=== PATIENT | female | born 1980 | race Caucasian/White ===

== ENCOUNTER 2016-04-26 07:39 | Outpatient (CLI) | payer BC ==
[~2016-04-26] VITALS: Ht 162.6 cm; Wt 119.1 kg
[2016-04-26 08:57] VITALS: Ht 162.6 cm; Wt 119.1 kg
[2016-04-26] MEDS ORDERED: PRENTAB26 PO (08:59)
[2016-04-26] MEDS ORDERED: FERR1TAB23 PO (08:59)
== END 2016-04-26 09:15 | disposition home or self-care (01) ==
LOC: C.LD 07:39 → C.OPB 07:39
PROVIDERS: ATTEND Obstetrics & Gynecology
DX: O26.893 Other specified pregnancy related conditions, third trimester (principal); R10.9 Unspecified abdominal pain; Z3A.36 36 weeks gestation of pregnancy

== ENCOUNTER 2016-05-16 20:54 | Outpatient (CLI) | payer BC, OTHER ==
[~2016-05-16] VITALS: Ht 162.6 cm; Wt 118.5 kg
[~2016-05-16 20:54] MED LIST: FERR1TAB23 PO; PRENTAB26 PO
[2016-05-16 22:08] VITALS: Ht 162.6 cm; Wt 118.5 kg
== END 2016-05-16 23:25 ==
LOC: C.LD 20:54 → C.OPB 20:54
PROVIDERS: ATTEND Obstetrics & Gynecology
DX: O99.89 Other specified diseases and conditions complicating pregnancy, childbirth and the puerperium (principal); R10.9 Unspecified abdominal pain; Z3A.39 39 weeks gestation of pregnancy

== ENCOUNTER 2016-05-17 23:29 | Inpatient (IN) | payer BC, OTHER ==
[~2016-05-17] VITALS: Ht 162.6 cm; Wt 118.0 kg
[2016-05-18 00:31] LABS: HEMATOCRIT 32.5 % (37-47); MEAN CELL VOLUME 80.2 fL (80-100); MEAN CORPUSCULAR HEMOGLOBIN 26.9 pg (25-34); MEAN CORPUSCULAR HGB CONC 33.5 g/dl (32-36); PLATELET COUNT 256 K/uL (130-400); RED BLOOD COUNT 4.05 M/uL (4.2-5.4); WHITE BLOOD COUNT 13.43 K/uL (4.8-10.8)
[2016-05-18] MEDS ORDERED: LANOLIN OINT EXT PRN ×2 (00:45)
[2016-05-18] MEDS ORDERED: BENZOCAINE 20% AER SPR 82.5 GM CAN EXT PRN (00:45)
[2016-05-18] MEDS ORDERED: SUPERCREAM 0.870 % 15GM JAR EXT PRN (00:45)
[2016-05-18] MEDS ORDERED: HYDROCORTISONE ACETATE 25 MG SUPP PR PRN (00:45)
[2016-05-18] MEDS ORDERED: ACETAMINOPHEN/CODEINE 300/30MG TAB PO PRN ×2 (00:45)
[2016-05-18] MEDS ORDERED: IBUPROFEN 600 MG TAB PO PRN (00:45)
[2016-05-18 00:47] VITALS: Ht 162.6 cm; Wt 118.0 kg
[2016-05-18] MEDS ORDERED: OXYTOCIN INJ 10 UNITS/ML VIAL IM STA (00:49)
[2016-05-18] MEDS: IBUPROFEN 200 MG/10 ML UDC PO PRN ×4 (02:38→21:51)
[2016-05-18 04:15] VITALS: BP 132/68; PULSE 79; TEMP 36.7
--- NOTE | 2016-05-18 04:36 | DELIVERY SUMMARY ---
DATE OF OPERATION: 05/18/2016 HISTORY OF PRESENT ILLNESS: The patient is a 36-year-old -0-0-1 at 40 weeks 0 days who presented with spontaneous labor and subsequently delivered vaginally. complicated by advanced maternal age and tachycardia. She was to get a cardiology consult but did not show for that visit. PAST MEDICAL HISTORY: Heart murmur and asthma. PAST SURGICAL HISTORY: Denies. OBSTETRICAL HISTORY: History of vaginal delivery x1 at 38 weeks, uncomplicated. SOCIAL HISTORY: Denies tobacco, alcohol and drug use. Lives with spouse, son and dogs. FAMILY HISTORY: Noncontributory. REVIEW OF SYSTEMS: Negative except as above. MEDICATIONS: Albuterol and vitamins. ALLERGIES: No known drug allergies. PHYSICAL EXAMINATION: VITAL SIGNS: Blood pressure 129/70, pulse 95. GENERAL: Awake, alert, oriented x3, very uncomfortable due to contractions. CARDIOVASCULAR: Regular rate and rhythm, S1, S2. LUNGS: Clear to auscultation bilaterally. ABDOMEN: Gravid, soft, nontender to palpation. EXTREMITIES: Trace edema. Not able to obtain heart tracing due to spontaneous nature of delivery. heart rate in the 150s. LABORATORY DATA: Rh positive, rubella immune, GBS negative. ASSESSMENT AND PLAN: 1. A 36-year-old -0-0-1 at 40 weeks 0 days. 2. Spontaneous labor. DESCRIPTION OF DELIVERY: The patient progressed to complete without anesthesia and spontaneously vaginally delivered a viable male with Apgars 8 and 9. Weight is pending. The baby delivered head first followed by anterior and posterior shoulder followed by the body. The baby was placed in mothers abdomen where spontaneous cry was heard. The cord was doubly clamped and cut. A segment was retained for gases. Cord blood was obtained. The placenta delivered spontaneously intact with a 3-vessel cord. Pitocin was given 10 units IM due to inability to start IV prior to precipitous delivery. The uterus and vagina were sucked for all clots and debris. The uterus became firm. The cervix, vagina and perineum were inspected and a first degree perineal laceration as well as a superficial periurethral laceration were noted. The periurethral laceration was hemostatic. Prior to repair of the laceration 1% lidocaine without Epi was used as a local anesthetic. The first degree perineal laceration was repaired in standard fashion with 3-0 Vicryl. Mother and baby tolerated the delivery well. Excellent hemostasis was observed. Sponge, instrument and needle counts were correct at the conclusion of the case. I attest to the content of the Intraoperative Record and any orders documented therein. Any exceptions are noted below. MTDD
[2016-05-18] MEDS: FERROUS SULFATE 325 MG TAB PO SCH (07:51)
[2016-05-18] MEDS: DOCUSATE SODIUM 100 MG CAP PO SCH ×2 (07:52→20:00)
[2016-05-18 08:00] VITALS: BP 109/58; PULSE 90; TEMP 36.6
[2016-05-18 12:30] VITALS: BP 118/75; PULSE 93; TEMP 36.6; O2SAT 96
[2016-05-18 15:45] VITALS: BP 129/78; PULSE 92; TEMP 36.7; O2SAT 95
[2016-05-18 20:15] VITALS: BP 124/81; PULSE 96; TEMP 36.6; O2SAT 96
[2016-05-18 23:30] VITALS: BP 115/66; PULSE 87; TEMP 36.5; O2SAT 97
[2016-05-19 07:00] LABS: HEMATOCRIT 29.1 % (37-47)
--- NOTE | 2016-05-19 07:02 | Progress Note ---
Subjective May 19, 2016. Subjective conversation w/ patient, physical exam Ambulation: ambulating normally Voiding: no voiding problems Passing Gas: Yes Diet Tolerance: Regular Diet Lochia: Small Feeding Type: Breast Feeding Pain: No pain reported this morning Review of Systems Constitutional: No chills, No fever Respiratory: No cough, No shortness of breath Cardiac: No chest pain Breast: No breast pain Abdomen: No nausea, No pain, No vomiting Female : No dysuria Objective Vital Signs Date Time Temp Pulse Resp B/P Pulse Ox O2 Delivery O2 Flow Rate FiO2 05/18/16 23:30 97 Room Air 05/18/16 23:30 36.5 87 18 115/66 97 Room Air 05/18/16 20:15 36.6 96 18 124/81 96 Room Air 05/18/16 15:45 95 Room Air 05/18/16 15:45 36.7 92 16 129/78 95 Room Air 05/18/16 12:30 36.6 93 20 118/75 96 Room Air 05/18/16 08:00 36.6 90 18 109/58 Room Air 05/18/16 07:45 Room Air Physical Exam General Appearance: WELL-APPEARING, WD/WN, NO APPARENT DISTRESS Respiratory/Chest: lungs clear, normal breath sounds Cardiovascular: regular rate, rhythm, no gallop, no murmur Abdomen: non tender, soft Fundus: Firm, Relation to Umbilicus (At level of umbilicus) Extremities: no calf tenderness Laboratory Results Last 24 Hours Test 05/19/16 06:30 Hemoglobin 9.4 g/dL Hematocrit 29.1 % Medications Current Inpatient Medications Medications (Trade) Dose Ordered Sig/Bj Route Start Time Stop Time Status Last Admin Dose Admin Benzocaine (Dermoplast Aero Spr) 1 appln PRN PRN EXT 05/18/16 00:45 06/17/16 00:44 Cocaine HCl (Supercream 0.870% Cr) BID PRN EXT 05/18/16 00:45 06/01/16 00:44 Hydrocortisone Acetate (Anusol Hc Supp) 25 mg BID PRN MS 05/18/16 00:45 06/17/16 00:44 Lanolin (Lanolin Oint) PRN PRN EXT 05/18/16 00:45 06/17/16 00:44 Acetaminophen/ Codeine Phosphate (Tylenol w/ Codeine #3 Tab) 1 tab Q4H PRN PO 05/18/16 00:45 06/17/16 00:44 Acetaminophen/ Codeine Phosphate (Tylenol w/ Codeine #3 Tab) 2 tab Q4H PRN PO 05/18/16 00:45 06/17/16 00:44 Bisacodyl (Dulcolax Tab) 5 mg 20 PO 05/19/16 20:00 05/19/16 20:01 Bisacodyl (Dulcolax Supp) 10 mg DAILY PRN MS 05/20/16 07:00 Docusate Sodium (coLACE CAP) 100 mg BID PO 05/18/16 08:00 06/17/16 07:59 Ferrous Sulfate (Feosol Tab) 325 mg DAILY PO 05/18/16 08:00 06/17/16 07:59 05/18/16 07:51 325 MG Ibuprofen (Motrin Susp) 600 mg Q4H PRN PO 05/18/16 02:30 06/17/16 02:29 05/18/16 21:51 600 MG Assessment and Plan Post- Day#: 1 Continue Routine Care: - Vital Signs reviewed and WNL (temp max 36.5) - Blood Type: AB+, GBS Negative, Rubella Immune - Patient doing well clinically - Encourage Ambulation today - Tolerating PO Diet - Pain well controlled Resident Physician Supervision Note: I interviewed and examined the patient. Discussed with Dr. Rangel and agree with findings and plan as documented in the note. Any exceptions or clarifications are listed here: [None] Documented By: Ti Oh
--- NOTE | 2016-05-19 07:03 | Discharge Instructions ---
Discharge Instructions Admission Reason for Admission: Active Labor Discharge Discharge Diagnosis / Problem: Vaginal Delivery Discharge Goals Goal(s): Routine recovery after delivery Medications Continue Dispensed Medications: supercream, dermaplast, tucks, lansinoh Activity Recommendations Activity Limitations: per Instructions/Follow-up section . Instructions / Follow-Up Instructions / Follow-Up ACTIVITY RECOMMENDATIONS: * Gradual return to full activity over the next 2-3 weeks. * No lifting - nothing heavier than baby over the next 2-3 weeks. * Do not engage in vigorous exercise, sexual activity or sports until cleared by your physician. * Do not drive or operate any motorized equipment until cleared by your physician. * You may shower/bathe daily. MEDICATIONS: For discomfort or pain, you may use Acetaminophen (Tylenol), Ibuprofen (Advil), or Naproxen (Aleve) following the package directions. For constipation you may use Colace following the package directions. BREAST CARE: If you are not breast feeding: * Wear a supportive bra 24 hours a day for one to two weeks. * Avoid stimulating your breasts and nipples as much as possible during the first few weeks after delivery. * When taking a shower, have the warm water hit your back, not breasts. * When your breasts feel full, apply ice packs. Usually three to four times a day helps ease the discomfort. * Take a mild pain medication (Tylenol / Motrin) when you are uncomfortable. If breast feeding: * Use breast milk to lubricate nipples. Lansinoh cream may be used for sore nipples. You do not need to remove cream prior to breast feeding. If using a different brand of cream, check the label for directions regarding removal of cream prior to nursing. * Wear a supportive bra. * If having problems with breasts or breast feeding, call a industrial rehabilitation consultant or your health care provider. EPISIOTOMY CARE: After delivery, if you have an episiotomy (stitches), the following steps will ease discomfort and aid healing. * For the first 24 hours after delivery, place ice packs next to your episiotomy to help reduce swelling. * After the first 24 hour-period, sitz baths, either portable or in the tub, are suggested. A shower with a shower arm sprayed over the episiotomy may be comforting. * Carol care should be done after each voiding and bowel movement. Squirt warm water from a plastic bottle over the perineum (region of the body between the anus and urinary opening) and pat dry. * Use Dermoplast to ease discomfort. Shake container. [place] directly over the episiotomy. Place a Tucks on a clean sanitary pad next to your episiotomy. SPECIAL CARE INSTRUCTIONS: When you are discharged from the hospital, it is important for you to follow the instructions listed below: * During the first week at home, you should be able to care for yourself and your baby. In addition, the usual light household activities are encouraged. * Limit your activities to the way you feel. Do not try to clean the house or move furniture. Be sensible. * If you actively engage in sports and have done so up until the time of your delivery, you may resume these activities as soon as you feel able. This may take up to one month or even longer. Use good judgment. * Continue to take your vitamins for at least six weeks after the of your baby. * Your diet need not be limited unless you were on a special diet before your delivery. Breast-feeding mothers need around 2500 calories per day and at least 64-80 ounces of fluid per day (8 to 10 glasses). * You should eat foods from the four major food groups. Crash diets or fad diets are to be avoided. Eating lean meats, fresh fruits and vegetables, low-fat dairy products, high fiber foods and a regular exercise program, will help you get back to your pre- weight without putting your health at risk. * Constipation is sometimes a problem after delivery. Take a mild laxative as needed. If breast feeding, Milk of Magnesia is acceptable to use. You may use a suppository or Fleets enema if no episiotomy. * A daily shower or tub bath is suggested. Be sure to thoroughly and gently dry the perineum. * A bloody vaginal discharge will usually continue until around four weeks post . A small amount of bleeding may continue for as long as six weeks. Vaginal discharge changes from the bright red bleeding after delivery to pink then brownish and finally yellowish-pink before becoming white and disappearing. * Bleeding may increase with activity. Your first period may come in 4-8 weeks. If you are breast feeding, your period may be delayed even longer. * [place] (sex) can begin whenever both you and your partner feel comfortable and do not have any form of genital infection. It is recommended that you wait at least six weeks for internal and external healing to occur. If you have questions, please talk to your health care practitioner. A condom should be used to prevent infection and . * Foreplay, gentle intercourse and lubrication is very important the first several times to prevent pain. A water-based lubricant such as K-Y jelly or Astroglide may be used. * If you have RH negative blood and your baby is RH positive, you will receive RHOGAM by injection prior to discharge. The nurse will give you a card to keep with you that has the date and place that you received RHOGAM after delivery. * During your care, you had a Rubella screen done to check for the presence of rubella antibodies in your blood. If your test was negative, you will receive a Rubella vaccine prior to discharge. This vaccine may cause a fever, soreness at the injection site and flu-like symptoms. If these symptoms persist, notify your health care practitioner. is not advised for one month after a Rubella vaccine. * Verbalizes understanding of car seat law as reviewed with patient nursing. * Car Seat hand-out given and reviewed with patient by nursing. * Shaken baby information reviewed with patient by nursing. Call you doctor if: * Heavy bleeding (saturating several pads an hour) or passing clots the size of your fist. * A fever >101 degrees F (38.3 degrees C) on two occasions four hours apart and /or chills. * Unusual pain in the pelvic or vaginal areas. * "Baby Blues" lasting longer than two weeks. If you have any questions or concerns, call your health care practitioner at . FOLLOW UP VISIT: * Please call the office at to schedule a 6 week examination. It is important you keep this appointment. It is important for you to make arrangements for either yearly or twice yearly check-ups thereafter. Current Hospital Diet Patient's current hospital diet: Regular OB Diet Discharge Diet Recommended Diet: Regular Diet Pending Studies Studies pending at discharge: no Medical Emergencies . Who to Call and When: Medical Emergencies: If at any time you feel your situation is an emergency, please call 911 immediately. . Non-Emergent Contact Non-Emergency issues call your: Platform [employer]er . . "Provider Documentation" section prepared by Star Rangel. VTE Core Measure Inpt VTE Proph given/why not?: Treatment not indicated
[2016-05-19 07:45] VITALS: BP 128/72; PULSE 90; TEMP 36.9
[2016-05-19] MEDS: DOCUSATE SODIUM 100 MG CAP PO SCH (07:49)
[2016-05-19] MEDS: FERROUS SULFATE 325 MG TAB PO SCH (07:50)
[2016-05-19 07:53] VITALS: BP 100/58; PULSE 89; TEMP 36.6
[2016-05-19] MEDS: IBUPROFEN 200 MG/10 ML UDC PO PRN (07:53)
[2016-05-19 12:05] VITALS: BP_DIAS 58; PULSE 89; TEMP 36.6
[2016-05-19] MEDS ORDERED: BISACODYL 5 MG TABEC PO SCH (20:00)
[2016-05-20] MEDS ORDERED: BISACODYL 10 MG SUPP PR PRN (07:00)
== END 2016-05-19 12:36 | disposition home or self-care (01) | DRG 775 ==
LOC: C.LD 23:29 → C.OPB 23:29 → C.LD 05-18 00:16 → C.OBG 05-18 04:20
PROVIDERS: ADMIT Obstetrics & Gynecology; ATTEND Obstetrics & Gynecology
PROC: 0WQNXZZ Repair Female Perineum, External Approach (ICD-10-PCS; principal; 2016-05-18)
PROC: 10E0XZZ Delivery of Products of Conception, External Approach (ICD-10-PCS; principal; 2016-05-18)
DX: O76 Abnormality in fetal heart rate and rhythm complicating labor and delivery (principal); J45.909 Unspecified asthma, uncomplicated; O48.0 Post-term pregnancy; O70.0 First degree perineal laceration during delivery; O71.82 Other specified trauma to perineum and vulva; Z3A.40 40 weeks gestation of pregnancy; Z37.0 Single live birth